=== PATIENT | male | born 1985 | race Caucasian/White ===

== ENCOUNTER 2018-08-21 03:25 | Emergency (ER) | payer MEDICAID ==
[~2018-08-21] VITALS: Ht 185.4 cm; Wt 68.0 kg
[2018-08-21 07:26] VITALS: BP 119/79
== END 2018-08-21 07:43 | disposition home or self-care (01) ==
LOC: ER 03:28
DX: S66.911A Strain of unspecified muscle, fascia and tendon at wrist and hand level, right hand, initial encounter (principal); X58.XXXA Exposure to other specified factors, initial encounter; Y93.89 Activity, other specified; Y92.89 Other specified places as the place of occurrence of the external cause; Y99.8 Other external cause status
CPT/HCPCS: 29125; 73110